=== PATIENT | female | born 1960 | race Caucasian/White ===

== ENCOUNTER 2021-08-29 12:41 | Outpatient (CLI) | payer MEDICARE, MEDICAID, SELFPAY | END 2021-08-29 12:42 | disposition home or self-care (01) | LOC: ANHAUDIO 12:43 | PROVIDERS: PCP Family Medicine; Visit Provider Family Medicine Sports Medicine | DX: H91.90 Unspecified hearing loss, unspecified ear (principal) | CPT/HCPCS: 92557; 92567 ==

== ENCOUNTER 2021-10-10 07:37 | Outpatient (RCR) | payer MEDICARE, MEDICAID, SELFPAY | END 2021-10-10 23:59 | disposition home or self-care (01) | LOC: ANHAUDIO 07:37 | PROVIDERS: PCP Family Medicine; Visit Provider Family Medicine | DX: Z46.1 Encounter for fitting and adjustment of hearing aid (principal) | CPT/HCPCS: V5241; V5257; V5264 ==

== ENCOUNTER 2023-09-28 08:47 | Outpatient (CLI) | payer MEDICARE, MEDICAID, SELFPAY | END 2023-09-28 08:48 | disposition home or self-care (01) | LOC: ANHAUDIO 08:48 | PROVIDERS: Visit Provider Family Medicine Sports Medicine | DX: H90.42 Sensorineural hearing loss, unilateral, left ear, with unrestricted hearing on the contralateral side (principal); H90.71 Mixed conductive and sensorineural hearing loss, unilateral, right ear, with unrestricted hearing on the contralateral side | CPT/HCPCS: 92557; 92567 ==

== ENCOUNTER 2024-06-26 11:00 | Outpatient (RCR) | payer MEDICAID, SELFPAY | END 2024-06-26 23:59 | disposition home or self-care (01) | LOC: ANHAUDIO 11:00 | DX: Z46.1 Encounter for fitting and adjustment of hearing aid (principal) | CPT/HCPCS: 99199; V5257; V5264 ==